=== PATIENT | female | born 1995 | race Caucasian/White ===

== ENCOUNTER 2017-01-06 11:39 | Emergency (ER) | payer MEDICAID, OTHER ==
[~2017-01-06] VITALS: Ht 160 cm; Wt 61.5 kg
[~2017-01-06 11:39] MED LIST: IBUP600 PO; PERI8.6T PO; PREN0.01 PO
[2017-01-06 11:42] VITALS: BP 116/67; PULSE 77; RESP 14; TEMP 98.2; O2SAT 98
--- NOTE | 2017-01-06 11:54 | PD ---
Physical Exam Time Seen by Provider: 11:54 Narrative 21 y/o female who reports that she is 13 weeks presents with vaginal bleeding. Vital signs reviewed. Seen at triage desk. Awaiting bed placement. Data Data Last Documented VS Vital Signs Date Time Temp Pulse Resp B/P Pulse Ox O2 Delivery O2 Flow Rate FiO2 01/06/17 11:42 98.2 77 14 116/67 98 MDM Medical Record Reviewed: Yes Supervised Visit with BARBARA: Gilbert Cantor Jan 06, 2017 11:54
[2017-01-06 12:47] LABS: AUTOMATED NEUTROPHIL # 4.7 TH/MM3 (1.8-7.7); BASOPHIL % 0.2 % (0.0-2.0); EOSINOPHIL # 0.1 TH/MM3 (0-0.4); HEMATOCRIT 40.6 % (35.0-46.0); HEMO FLAGS DIFF FINAL; LYMPH % 31.2 % (9.0-44.0); LYMPHOCYTE # 2.3 TH/MM3 (1.0-4.8); MEAN CELL VOLUME 88.6 FL (80.0-100.0); MEAN CORPUSCULAR HGB CONC 33.9 % (32.0-36.0); NEUT % 62.6 % (16.0-70.0); PLATELET COUNT 243 TH/MM3 (150-450); RED BLOOD COUNT 4.58 MIL/MM3 (4.00-5.30); RED CELL DISTRIBUTION WIDTH 12.9 % (11.6-17.2); WHITE BLOOD COUNT 7.5 TH/MM3 (4.0-11.0)
[2017-01-06 13:07] LABS: ANION GAP 8 MEQ/L (5-15); AST (GOT) 35 U/L (15-37); BLOOD UREA NITROGEN 8 MG/DL (7-18); CHLORIDE 106 MEQ/L (98-107); GLOMERULAR FILTRATION RATE 152 ML/MIN (>89); POTASSIUM 3.5 MEQ/L (3.5-5.1); SODIUM (NA) 139 MEQ/L (136-145)
[2017-01-06 13:48] LABS: ALKALINE PHOSPHATASE 96 U/L (45-117); ALT (GPT) 58 U/L (10-53); TOTAL BILIRUBIN ADULT 0.4 MG/DL (0.2-1.0)
[2017-01-06 14:04] LABS: BETA HCG QUANT 4594 MIU/ML (0-5)
--- NOTE | 2017-01-06 15:00 | PD ---
HPI Chief Complaint: Related Problem Time Seen by Provider: 14:55 Travel History International Travel<30 days: No Contact w/Intl Traveler<30days: No Traveled to known affect area: No History of Present Illness HPI 21-year-old , 13 week by questionable dates female presents to the ED for evaluation of one day history of vaginal bleeding. She states that she went to the bathroom at work today and saw a small amount of blood on the paper and in the bowl. Patient endorses intermittent mild abdominal cramping for weeks which she associates with "the iron in the vitamins." She denies abdominal pain, nausea, vomiting, dysuria, back pain. She denies chronic health problems. States LMP "sometime in September." She has an upcoming appointment for an ultrasound but has not yet established OB care. [facility] Past Medical History Medical History: Denies Significant Hx Diminished Hearing: No Tetanus Vaccination: < 5 Years Influenza Vaccination: No ?: LMP: UNKNOWN : 2 Para: 1 Past Surgical History Surgical History: No Previous Surgery Social History Alcohol Use: No (pt denies ) Tobacco Use: No (pt denies ) Substance Use: No (pt denies ) Allergies-Medications (Allergen,Severity, Reaction): Coded Allergies: No Known Allergies (Verified , 01/06/17) Reported Meds & Prescriptions Reported Meds & Active Scripts Active No Active Prescriptions or Reported Medications Review of Systems Except as stated in HPI: all other systems reviewed are Neg Physical Exam Narrative GENERAL: Well-nourished, well-developed thin white female in no acute distress. SKIN: Focused skin assessment warm/dry. HEAD: Normocephalic. EYES: No scleral icterus. No injection or drainage. NECK: Supple, trachea midline. No JVD or lymphadenopathy. CARDIOVASCULAR: Regular rate and rhythm without murmurs, gallops, or rubs. RESPIRATORY: Breath sounds clear and equal bilaterally. No accessory muscle use. GASTROINTESTINAL: Abdomen soft, non-tender, nondistended. Active bowel sounds. MUSCULOSKELETAL: No cyanosis, or edema. GENITOURINARY: Normal external genitalia without lesions or erythema. Vaginal vault without blood or drainage. Cervical os was closed, thick, firm, small amount of mucoid drainage. No cervical motion tenderness. Uterus nontender and nonenlarged. Bilateral adnexa nontender without masses. BACK: Nontender without obvious deformity. No CVA tenderness. Data Data Last Documented VS Vital Signs Date Time Temp Pulse Resp B/P Pulse Ox O2 Delivery O2 Flow Rate FiO2 01/06/17 14:12 78 16 01/06/17 11:42 98.2 116/67 98 Orders Beta Hcg (Quant/Titer) (01/06/17 11:55) Complete Blood Count With Diff (01/06/17 11:55) Comprehensive Metabolic Panel (01/06/17 11:55) Complete Rh (01/06/17 11:55) Ed Poc Ultrasound (01/06/17 14:30) Urinalysis - C+S If Indicated (01/06/17 14:53) Us Pelvis (Ques Pr/Ect)W Trans (01/06/17 ) Labs Laboratory Tests Test 01/06/17 01/06/17 12:01 15:30 White Blood Count 7.5 TH/MM3 Red Blood Count 4.58 MIL/MM3 Hemoglobin 13.8 GM/DL Hematocrit 40.6 % Mean Corpuscular Volume 88.6 FL Mean Corpuscular Hemoglobin 30.0 PG Mean Corpuscular Hemoglobin 33.9 % Concent Red Cell Distribution Width 12.9 % Platelet Count 243 TH/MM3 Mean Platelet Volume 7.5 FL Neutrophils (%) (Auto) 62.6 % Lymphocytes (%) (Auto) 31.2 % Monocytes (%) (Auto) 5.0 % Eosinophils (%) (Auto) 1.0 % Basophils (%) (Auto) 0.2 % Neutrophils # (Auto) 4.7 TH/MM3 Lymphocytes # (Auto) 2.3 TH/MM3 Monocytes # (Auto) 0.4 TH/MM3 Eosinophils # (Auto) 0.1 TH/MM3 Basophils # (Auto) 0.0 TH/MM3 CBC Comment DIFF FINAL Differential Comment Sodium Level 139 MEQ/L Potassium Level 3.5 MEQ/L Chloride Level 106 MEQ/L Carbon Dioxide Level 25.0 MEQ/L Anion Gap 8 MEQ/L Blood Urea Nitrogen 8 MG/DL Creatinine 0.51 MG/DL Estimat Glomerular Filtration 152 ML/MIN Rate Random Glucose 78 MG/DL Calcium Level 9.6 MG/DL Total Bilirubin 0.4 MG/DL Aspartate Amino Transf 35 U/L (AST/SGOT) Alanine Aminotransferase 58 U/L (ALT/SGPT) Alkaline Phosphatase 96 U/L Total Protein 8.4 GM/DL Albumin 4.5 GM/DL Human Chorionic Gonadotropin, 4594 MIU/ML Quant Blood Type O POSITIVE Rho(D) Type POSITIVE Urine Color LIGHT-YELLOW Urine Turbidity CLEAR Urine pH 7.0 Urine Specific [place] 1.008 Urine Protein NEG mg/dL Urine Glucose (UA) NEG mg/dL Urine Ketones NEG mg/dL Urine Occult Blood NEG Urine Nitrite NEG Urine Bilirubin NEG Urine Urobilinogen LESS THAN 2.0 MG/DL Urine Leukocyte Esterase NEG Urine RBC LESS THAN 1 /hpf Urine WBC 1 /hpf Urine Squamous Epithelial 1 /hpf Cells Microscopic Urinalysis Comment CULT NOT INDICATED MDM Medical Decision Making Medical Screen Exam Complete: Yes Emergency Medical Condition: Yes Differential Diagnosis Ectopic versus intrauterine versus vaginal bleeding in versus threatened versus other Narrative Course 21-year-old 13 week the question while dates female presents to the ED for evaluation of one day history of vaginal bleeding in 3 weeks history of mild abdominal cramping. She associates the cramping with "iron and vitamins." LMP "sometime in September" had an upcoming ultrasound appointment but no OB care. Vitals reviewed. Abdominal exam unremarkable. Pelvic exam with cervical os closed with small amount of mucoid discharge. [id number] ultrasound reveals intrauterine . HCG~4500. Transvaginal ultrasound reveals crown-rump length corresponding with gestational age 8 weeks, 3 days. Gestational sac corresponds with 7 week, 2 day gestational age. No heart motion noted. Consistent with demise. I spoke with the OB hospitalist who recommended outpatient follow-up. I spoke with Dr. Oconnor who agrees to see the patient in the office this week. Discussed the results of the workup with the patient and provided detailed instructions for follow-up. The patient indicated understanding of the instructions and is agreeable to the care plan. She is stable and discharged home. Procedures Procedure Narrative Emergency Department Pelvic ultrasound was performed with patient consent. The curvilinear probe was used in the transverse and sagittal views within the suprapubic region revealing single intrauterine , too small to visualize heart rate. Diagnosis Primary Impression: demise due to miscarriage Referrals: Noemi Oconnor MD Patient Instructions: General Instructions, Intrauterine Demise (ED) Additional Instructions: Rest, hydrate. Call Dr. Coon's office tomorrow morning for an appointment this week. YOU SHOULD FOLLOW-UP THIS WEEK. Return to the ED for any urgent or emergent medical condition. Scripts No Active Prescriptions or Reported Meds Disposition: 01 DISCHARGE HOME Condition: Rosalee Encinas Jan 06, 2017 15:00
--- NOTE | 2017-01-06 15:34 | RADRPT ---
EXAM DATE/TIME: 01/06/2017 15:04 [place] COMPARISON: US PELVIS (QUEST PREG/ECTOPIC) W/TRANSVAG, November 26, 2013, 3:50. INDICATIONS : Bleeding with . LAB(S): Beta-hC MEDICAL HISTORY : . SURGICAL HISTORY : None. ENCOUNTER: Initial ACUITY: 1 day PAIN SCORE: 0/10 LOCATION: Bilateral pelvis MEASUREMENTS: UTERUS: 10.5 x 7.7 x 5.5 cm ENDOMETRIAL STRIPE: >20 mm RIGHT OVARY: not seen LEFT OVARY: 4.1 x 1.8 x 1.8 cm FREE FLUID: Yes CROWN RUMP LENGTH: 1.9 cm = 8 WKS 3 DAYS FHR: 0 BPM FINDINGS: UTERUS: The myometrium has homogeneous echotexture without mass. Gestational sac is identified measuring 2.7 x 2.0 x 2.9 cm corresponding to a gestational age of 7 weeks and 2 days. pole is identified leonor suring 1.93 cm in length corresponding to a gestational age of 8 weeks and 3 days. I do not definitiv diane identify a yolk sac. heart motions are not identified as well. RIGHT OVARY: Right ovary is not visualized. No adnexal mass lesions LEFT OVARY: 9 mm complex cyst identified in the left ovary probably represents the involuting corpus luteum. MISCELLANEOUS: Small amount of free fluid in the cul-de-sac. CONCLUSION: Ultrasound findings characteristic of demise. No heart motion identified. Bala Ballard MD on January 06, 2017 at 15:29 Board Certified Radiologist. This report was verified electronically.
[2017-01-06 15:39] LABS: BLOOD, URINE NEG (NEG); GLUCOSE,URINE NEG (NEG); KETONE, URINE NEG (NEG); NITRITE,URINE NEG (NEG); SQUAMOUS EPITHELIAL CELL URINE 1 /hpf (0-5); URINE COLOR LIGHT-YELLOW (YELLW/STRAW)
[2017-01-06 15:42] LABS: COMMENT (UR) CULT NOT INDICATED; CULTURE IF INDICATED CULT NOT INDICATED
[2017-01-06 16:15] VITALS: BP 120/69; TEMP 97.8
== END 2017-01-06 16:25 | disposition home or self-care (01) ==
LOC: NEPD 11:39
DX: O02.1 Missed abortion (principal); Z3A.13 13 weeks gestation of pregnancy
CPT/HCPCS: 76700; 76817; 80053; 81001; 84702; 85025

== ENCOUNTER 2017-07-24 14:06 | Emergency (ER) | payer MEDICAID ==
[2017-07-24 14:50] VITALS: BP 119/69; PULSE 66
[2017-07-24 15:00] VITALS: RESP 16
[2017-07-24] MEDS ORDERED: LACTATED RINGER'S 1000 ML INJ 1,000 ML IV SCH (15:06)
[2017-07-24] MEDS ORDERED: ONDANSETRON HCL 4 MG/2 ML VIAL IV PUSH ONE (15:15)
--- NOTE | 2017-07-24 15:20 | PD ---
HPI Chief Complaint Nausea with Vomiting Date Seen: Jul 24, 2017 Travel History International Travel<30 Days: No Contact w/Intl Traveler<30Days: No Known Affected Area: No History of Present Illness HPI Ms. Singleton is a 22 y/o presenting at 18/5 weeks gestation with nausea and vomiting. She states that throughout her first trimester she has had nausea with vomiting. She was using marijuana to help her symptoms, but was given Promethazine 25mg Q4H for her symptoms by her OBGYN, Dr. Dominguez, at [facility]. She presents today with 24 hours of nausea and multiple episodes of vomiting. The vomiting has been without blood and mostly liquid as she has been unable to eat since yesterday at 1200. She has mild ABD discomfort due to her vomiting, but denies any contractions. She also denies any vaginal discharge, dysuria, or vaginal bleeding. Otherwise she has no complaints and denies any fevers, chills, SOB, chest pain, or calf tenderness. Weeks Gestation: 18 Para: 1 : 3 History Past Medical History Medical History: Denies Significant Hx Obstetric History Obstetric History -1st : at full term, no complications -2nd : Miscarriage at <20 weeks -This has been uncomplicated thus far. Past Surgical History Surgical History: No Previous Surgery Family History Family History: Negative Social History Narrative Social History No report of alcohol history. Patient has been smoking 2-3 cigarettes per day. Patient has been using marijuana for her nausea daily with last use on 07/23/17. No other history of illicit drugs reported. Allergies-Medications (Allergen,Severity, Reaction): Coded Allergies: No Known Allergies (Verified Allergy, Unknown, 07/24/17) Home Meds Active Scripts Potassium Chloride ER (K-Tab) 10 Meq Tab, 10 MEQ PO DAILY for Electrolyte Replacement, #6 TAB 0 Refills Prov:Dakota Ndiaye MD 07/24/17 Ondansetron Odt (Zofran Odt) 4 Mg Tab, 4 MG SL Q6HR Y for Nausea/Vomiting, #30 TAB 0 Refills Prov:Dakota Ndiaye MD 07/24/17 Review of Systems Except as stated in HPI: all other systems reviewed are Neg (Per HPI) Physical Exam Narrative GENERAL: Well-nourished, well-developed patient. SKIN: Warm and dry. HEAD: Normocephalic and atraumatic. EYES: No scleral icterus. No injection or drainage. ENT: No nasal drainage noted. Mucous membranes pink. Airway patent. NECK: Supple, trachea midline. No JVD. CARDIOVASCULAR: Regular rate and rhythm without murmurs, gallops, or rubs. RESPIRATORY: Breath sounds equal bilaterally. No accessory muscle use. ABDOMEN/GI: Abdomen soft, bowel sounds present, no rebound, no guarding. Mild tenderness to palpation of the upper 2 quadrants. Gravid to 18 weeks size FHT's: 150s EXTREMITIES: No cyanosis or edema. BACK: Nontender without obvious deformity. No CVA tenderness. NEUROLOGICAL: Awake and alert. Motor and sensory grossly within normal limits. Five out of 5 muscle strength in all muscle groups. Normal speech. Data Data Vital Signs Reviewed: Yes [facility] Medical Record Reviewed: Yes Plan Ms. Singleton is a 22 y/o presenting at 18/5 weeks gestation with nausea and vomiting likely related to . 1. IUP at 18 weeks gestation -Continue routine antepartum care -Encourage oral hydration -Encourage PNV -FHT appreciated, 150s 2. Nausea with vomiting -CBC, BMP, and UA ordered -1L LR bolus -Zofran 4mg x1 -Patient to undergo oral challenge for likely discharge with resolution of symptoms Discharge: Patient to be discharged home after passing oral challenge. Patient to follow up closely with OBGYN for further management. SDW: Dr. Ndiaye, Dr. Morales Update: Patient is hypokalemic, Potassium IV ordered. Patient tolerating PO well and feels improved. Patient to be discharged home with SL Zofran to be used as needed. Patient to follow up with OBGYN within 3-5 days. Diagnosis Diagnosis: Primary Impression: 18 weeks gestation of Additional Impression: Nausea and vomiting during prior to 22 weeks gestation Disposition: 01 DISCHARGE HOME Condition: Stable Scripts Potassium Chloride ER (K-Tab) 10 Meq Tab 10 MEQ PO DAILY for Electrolyte Replacement, #6 TAB 0 Refills Prov: Dakota Ndiaye MD 07/24/17 Ondansetron Odt (Zofran Odt) 4 Mg Tab 4 MG SL Q6HR Y for Nausea/Vomiting, #30 TAB 0 Refills Prov: Dakota Ndiaye MD 07/24/17 Patient Instructions: General Instructions, Abdominal Pain in (ED), Nausea and Vomiting in (ED), Diet (GEN) Tramaine Mirza MD R2 Jul 24, 2017 15:20
[2017-07-24 15:55] LABS: HEMATOCRIT 40.2 % (35.0-46.0); HEMOGLOBIN 14.3 GM/DL (11.6-15.3); MEAN CELL VOLUME 86.7 FL (80.0-100.0); MEAN CORPUSCULAR HEMOGLOBIN 30.8 PG (27.0-34.0); MEAN CORPUSCULAR HGB CONC 35.5 % (32.0-36.0); MEAN PLATELET VOLUME 8.2 FL (7.0-11.0); PLATELET COUNT 323 TH/MM3 (150-450); RED BLOOD COUNT 4.63 MIL/MM3 (4.00-5.30); WHITE BLOOD COUNT 17.8 TH/MM3 (4.0-11.0)
[2017-07-24 16:14] LABS: BICARBONATE 22.7 MEQ/L (21.0-32.0); CALCIUM 9.9 MG/DL (8.5-10.1); CREATININE 0.77 MG/DL (0.50-1.00)
[2017-07-24] MEDS ORDERED: POTASSIUM CHLORIDE 25 MEQ EFFERVESCENT TAB PO ONE (16:45)
[2017-07-24] MEDS ORDERED: POTASSIUM CHLOR 10 MEQ PREMIX 100 ML IV ONE (17:00)
[2017-07-24 18:09] LABS: BILIRUBIN, URINE NEG (NEG); BLOOD, URINE SMALL (NEG); GLUCOSE,URINE TRACE mg/dL (NEG); KETONE, URINE 150 mg/dL (NEG); MUCUS URINE FEW /lpf (OCC); NITRITE,URINE NEG (NEG); SQUAMOUS EPITHELIAL CELL URINE 7 /hpf (0-5); URINE COLOR YELLOW (YELLW/STRAW); URINE LEUKOCYTE ESTERASE NEG (NEG)
[2017-07-24] MEDS ORDERED: ZOFR4TAB3 SL (18:44)
[2017-07-24] MEDS ORDERED: K-TA10TA PO (18:46)
--- NOTE | 2017-07-24 18:48 | HHI.DCPOC ---
Discharge Care Plan Diagnosis: (1) Hypokalemia due to loss of potassium (2) 18 weeks gestation of (3) Nausea and vomiting during prior to 22 weeks gestation Report Symptoms to Your Doctor -Temperature above 100.5 degrees -Redness, of incision or excessive or foul smelling drainage -Unusual pain or calf pain -Increased vaginal bleeding -Painful or difficulty urinating -Feelings of extreme sadness or anxiety after 2 weeks Goals to Promote Your Health * To prevent worsening of your condition and complications * To maintain your health at the optimal level Directions to Meet Your Goals Take your medications as prescribed Follow your dietary instruction Follow activity as directed Ensure plenty of rest for recovery Drink fluids for hydration Keep your appointments as scheduled Take your immunizations and boosters as scheduled If your symptoms worsen call your PCP, if no PCP go to Urgent Care Center or Emergency Room Smoking is Dangerous to Your Health. Avoid second hand smoke Call the 24-hour crisis hotline for domestic abuse at Dakota Ndiaye MD Jul 24, 2017 18:48
== END 2017-07-24 19:21 | disposition home or self-care (01) ==
LOC: HOBED 14:06
DX: O21.9 Vomiting of pregnancy, unspecified (principal); E87.6 Hypokalemia; O99.332 Smoking (tobacco) complicating pregnancy, second trimester; F17.210 Nicotine dependence, cigarettes, uncomplicated; Z3A.18 18 weeks gestation of pregnancy
CPT/HCPCS: 80048; 81001; 84112; 85027; 96374; 96375; 99284; J2405; J3480; J7120

== ENCOUNTER 2017-12-27 18:02 | Inpatient (IN) ==
[2017-12-27] MEDS ORDERED: Oxytocin 30 Units/500ml Premix 30 UNITS/500 ML BAG IV.SIG ONE (18:35)
[2017-12-27] MEDS ORDERED: Sod Chloride 0.9% Inj 1,000 ML IV.CONT PRN (18:35)
[2017-12-27] MEDS ORDERED: Naloxone Inj 0.4 MG/ML Vial IV.PUSH PRN (18:35)
[2017-12-27] MEDS ORDERED: Sodium Chlor 0.9% Inj 500 ML IV.SIG PRN (18:35)
[2017-12-27] MEDS ORDERED: fentaNYL Citrate Inj 100 MCG/2 ML Ampul IV.PUSH PRN (18:35)
--- NOTE | 2017-12-27 18:40 | P.HPOB ---
History of Present Illness Primary Care Physician: NOT REQUIRED History of Present Illness: 22-year-old 3 para 1 AB 1 at 41 weeks gestation who comes tonight for induction of labor due to postdates . We reviewed the risks benefits and alternatives and she consents to cervical ripening with Cervidil followed by induction of labor with Pitocin. - Inpatient Certification I certify that the inpatient services were ordered in accordance with Medicare regulations governing the order. This includes certification that hospital inpatient services are reasonable and necessary and in the case of services not specified as inpatient-only under 42 CFR 419.22(n), that they are appropriately provided as inpatient services in accordance to with the 2-midnight benchmark under 43 CFR 412.3(e) Estimated Total Length of Stay (Days): 3 Plans for Post Hospital Care: Home Review of Systems All other systems reviewed negative except as stated in HPI PMFSH - Medical / Surgical Hx Neg / Unobtainable Medical Problems Denied: Yes Surgical History: No Previous Surgery - Tobacco History Smoking Status: Former smoker - Travel History Recent Travel in the [place] Within the Last 8 Weeks: No Recent Travel Out of the Country Within the Last 8 Weeks: No Medications and Allergies Allergies Allergy/AdvReac Type Severity Reaction Status Date / Time No Known Allergies Allergy Unknown Uncoded 07/24/17 15:11 Exam Vital signs: Intake & Output 12/26/17 12/27/17 12/27/17 18:59 06:59 18:59 Weight 64.864 kg Narrative: GENERAL: Well-nourished, well-developed patient. SKIN: Warm and dry. HEAD: Normocephalic and atraumatic. EYES: No scleral icterus. No injection or drainage. ENT: No nasal drainage noted. Mucous membranes pink. Airway patent. NECK: Supple, trachea midline. No JVD. CARDIOVASCULAR: Regular rate and rhythm without murmurs, gallops, or rubs. RESPIRATORY: Breath sounds equal bilaterally. No accessory muscle use. ABDOMEN/GI: Abdomen soft, non-tender, bowel sounds present, no rebound, no guarding Gravid to [-] weeks size Fundal Height: [-] GENITOURINARY: External Genitalia: intact and normal in appearance BUS glands: [-] Cervix: [-] Dilatation: [-2] Effacement: [50-] Station: [--2] Presentation: [-vtx] Membranes: [intact ] Uterine Contractions: [-no] FHT's: Category: [-1] Baseline: [-] Reactive: [-yes] Variability: [-] Decels: [-] EXTREMITIES: No cyanosis or edema. BACK: Nontender without obvious deformity. No CVA tenderness. NEUROLOGICAL: Awake and alert. Motor and sensory grossly within normal limits. Five out of 5 muscle strength in all muscle groups. Normal speech. Caprini VTE Risk Assessment Caprini VTE Risk Assessment: No/Low Risk (score <= 1) Caprini Risk Assessment Model: Point Value = 1 Point Value = 2 Point Value = 3 Point Value = 5 Age 41-60 Minor surgery BMI > 25 kg/m2 Swollen legs Varicose veins or History of unexplained or recurrent spontaneous Oral contraceptives or hormone replacement Sepsis (< 1 month) Serious lung disease, including pneumonia (< 1 month) Abnormal pulmonary function Acute myocardial infarction Congestive heart failure (< 1 month) History of inflammatory bowel disease Medical patient at bed rest Age 61-74 Arthroscopic surgery Major open surgery (> 45 min) Laparoscopic surgery (> 45 min) Malignancy Confined to bed (> 72 hours) Immobilizing plaster cast Central venous access Age >= 75 History of VTE Family history of VTE Factor V Leiden Prothrombin [id number] Lupus anticoagulant Anticardiolipin antibodies Elevated serum homocysteine Heparin-induced thrombocytopenia Other congenital or acquired thrombophilia Stroke (< 1 month) Elective arthroplasty Hip, pelvis, or leg fracture Acute spinal cord injury (< 1 month) Prophylaxis Regimen: Total Risk Factor Score Risk Level Prophylaxis Regimen 0-1 Low Early ambulation 2 Moderate Order ONE of the following: *Sequential Compression Device (SCD) *Heparin 5000 units SQ BID 3-4 Higher Order ONE of the following medications: *Heparin 5000 units SQ TID *Enoxaparin/Lovenox 40 mg SQ daily (WT < 150 kg, CrCl > 30 mL/min) *Enoxaparin/Lovenox 30 mg SQ daily (WT < 150 kg, CrCl > 10-29 mL/min) *Enoxaparin/Lovenox 30 mg SQ BID (WT < 150 kg, CrCl > 30 mL/min) AND/OR *Sequential Compression Device (SCD) 5 or more Highest Order ONE of the following medications: *Heparin 5000 units SQ TID (Preferred with Epidurals) *Enoxaparin/Lovenox 40 mg SQ daily (WT < 150 kg, CrCl > 30 mL/min) *Enoxaparin/Lovenox 30 mg SQ daily (WT < 150 kg, CrCl > 10-29 mL/min) *Enoxaparin/Lovenox 30 mg SQ BID (WT < 150 kg, CrCl > 30 mL/min) AND *Sequential Compression Device (SCD) Assessment and Plan - Plan Assessment: 41 week intrauterine admitted for cervical ripening and induction of labor Plan: Cervidil followed by Pitocin. She is GBS negative.
[2017-12-27] MEDS ORDERED: Citric Acid/Sodium Citrate Liq 30 ML UDC PO SCH (18:45)
[2017-12-27 18:55] LABS: Baso % (Auto) 0.2 % (0.0-2.0); Eos % (Auto) 0.3 % (0.0-4.0); Hematocrit 38.1 % (35.0-46.0); Hemoglobin 13.4 gm/dL (11.6-15.3); Lymph # (Auto) 1.5 th/mm3 (1.0-4.8); Lymph % (Auto) 17.9 % (9.0-44.0); Mean Corpuscular HGB Conc 35.1 % (32.0-36.0); Mean Corpuscular Hemoglobin 30.9 pg (27.0-34.0); Mono # (Auto) 0.5 th/mm3 (0.0-0.9); Mono % (Auto) 5.8 % (0.0-8.0); Neut # (Auto) 6.5 th/mm3 (1.8-7.7); Neut % (Auto) 75.8 % (16.0-70.0); Platelet Count 214 th/mm3 (150-450); Red Blood Count 4.33 mil/mm3 (4.00-5.30); Red Cell Distribution Width 12.5 % (11.6-17.2); White Blood Count 8.5 th/mm3 (4.0-11.0)
[2017-12-27 19:04] LABS: Amphetamine Urine With Conf Neg (Neg); Benzodiazepine Urine With Conf Neg (Neg)
[2017-12-27 19:19] LABS: Bacteria,Urine Few /hpf; Bilirubin,Urine Negative (Negative); Clarity,Urine Cloudy (Clear); Color,Urine Amber (Yellw/Straw); Glucose,Urine (UA) 50 mg/dL (Negative); Leukocyte Esterase,Urine Moderate (Negative); Mucus,Urine Few /lpf (Occasional); Nitrite,Urine Negative (Negative); Specific Gravity,Urine 1.033 (1.002-1.035); Squamous Epithelial Cell,Urine 42 /hpf (0-5)
[2017-12-28] MEDS ORDERED: Zolpidem Tartrate 5 MG Tablet PO PRN ×2 (00:01→12:02)
[2017-12-28] MEDS: fentaNYL Citrate Inj 100 MCG/2 ML Ampul IV.PUSH PRN ×2 (05:44→07:22)
[2017-12-28] MEDS ORDERED: fentaNYL 2MCG-Bupiv 0.125% Epi 150 ML EPIDURAL ONE (08:26)
[2017-12-28] MEDS ORDERED: Lidocaine PF 1% Inj 30 ML Vial ONE (09:16)
[2017-12-28] MEDS ORDERED: Oxytocin 30 Units/500ml Premix 30 UNITS/500 ML BAG ONE (09:18)
[2017-12-28] MEDS ORDERED: fentaNYL 2MCG-Bupiv 0.125% Epi 150 ML EPIDURAL PRN (10:14)
[2017-12-28] MEDS ORDERED: fentaNYL Citrate Inj 100 MCG/2 ML Ampul EPIDURAL ONE (10:14)
[2017-12-28] MEDS ORDERED: Benzocaine 20% Top Spray 60 ML Can TOPICAL PRN (12:02)
[2017-12-28] MEDS ORDERED: Naloxone Inj 0.4 MG/ML Vial IV.PUSH PRN (12:02)
[2017-12-28] MEDS ORDERED: Witch Hazel 50%/Glyderin 12.5% 40 Pad Jar RECTAL PRN (12:02)
[2017-12-28] MEDS ORDERED: Bisacodyl 10 MG Supp RECTAL PRN (12:02)
--- NOTE | 2017-12-28 12:10 | P.OBDELI ---
Weeks Gestation: 41 Medical Induction of Labor: Yes Artificial Rupture of Membrane: Yes Anesthesia: Epidural Episiotomy: midline Vaginal Delivery: Normal Presentation: Occiput anterior Nuchal Cord: None Delayed Cord Clamping (45 sec): Yes Placenta: Spontaneous delivery Laceration: 2 deg Repair: Chromic running Estimated blood loss (mL): 200 : Male Male A Weight: 3355 kg score (1 min): 9 score (5 min): 9 Additional Information: Head delivered by maternal effort. Episiotomy done midline. Head delivered by maternal effort. Nuchal cord not around neck. Anterior shoulder delivered without complication. Placenta delivered without complication. 2 degree perineal laceration repaired with chromic running.
[2017-12-28] MEDS ORDERED: Oxytocin 30 Units/500ml Premix 30 UNITS/500 ML BAG IV.CONT SCH (12:15)
[2017-12-28] MEDS: Acetaminophen 325 MG Tablet PO PRN ×2 (15:52→20:47)
[2017-12-28] MEDS: Ibuprofen 400 MG Tablet PO PRN (15:52)
[2017-12-28] MEDS ORDERED: Measles/Mumps/Rubella Vaccine Inj 0.5 ML Vial SQ ONE (16:00)
[2017-12-28] MEDS ORDERED: Diphtheria/Tetanus/Pertussis Vaccine Inj 0.5 ML Syringe IM ONE (16:00)
[2017-12-28] MEDS: Senna/Docusate Sodium 8.6/50 MG Tablet PO SCH (20:35)
[2017-12-29] MEDS: Acetaminophen 325 MG Tablet PO PRN ×5 (03:57→23:38)
--- NOTE | 2017-12-29 07:22 | P.PNOB ---
Subjective Post day: 1 Interval history: Patient is a 22-year-old delivered at 41 weeks and 1 days. Patient is day 1 after . Patient's pain is well-controlled. She has some upper left quadrant pain that started with her and was hoping would have resolved with the delivery. Non radiating sharp intermittent. Patient reports eating and drinking without any nausea or vomiting. Patient reports minimal bleeding. Patient has passed gas but no bowel movements. Patient is walking without lower extremity pain or shortness of breath. Patient reports desire for implant contraception and formula. Objective Vital Signs/I&O: Vital Signs 12/28/17 08:22 12/28/17 08:23 12/28/17 08:45 Temperature Pulse Rate 74 103 H Respiratory Rate 18 Blood Pressure 129/82 127/71 12/28/17 08:46 12/28/17 08:50 12/28/17 08:55 Temperature Pulse Rate 102 H 94 H Respiratory Rate 18 Blood Pressure 126/67 128/80 12/28/17 09:00 12/28/17 09:08 12/28/17 09:30 Temperature 97.7 F Pulse Rate 82 94 H 78 Respiratory Rate 16 Blood Pressure 116/66 118/70 12/28/17 09:46 12/28/17 09:47 12/28/17 09:48 Temperature Pulse Rate 92 H 100 H Respiratory Rate 16 Blood Pressure 100/53 L 92/57 L 12/28/17 10:00 12/28/17 10:04 12/28/17 10:15 Temperature Pulse Rate 91 H 94 H Respiratory Rate 16 Blood Pressure 91/50 L 87/50 L 12/28/17 10:18 12/28/17 10:20 12/28/17 10:30 Temperature Pulse Rate 79 75 Respiratory Rate 16 Blood Pressure 107/56 L 106/66 12/28/17 10:36 12/28/17 10:45 12/28/17 11:01 Temperature Pulse Rate 80 80 Respiratory Rate 16 16 Blood Pressure 103/68 99/62 L 12/28/17 11:06 12/28/17 11:15 12/28/17 11:35 Temperature 98.4 F Pulse Rate 104 H 133 H Respiratory Rate Blood Pressure 115/75 121/77 12/28/17 11:45 12/28/17 11:46 12/28/17 11:53 Temperature Pulse Rate 110 H Respiratory Rate 16 16 Blood Pressure 104/54 L 12/28/17 12:00 12/28/17 12:14 12/28/17 12:27 Temperature 97.8 F Pulse Rate 108 H 99 H Respiratory Rate 16 16 Blood Pressure 118/53 L 97/62 L 12/28/17 12:30 12/28/17 12:45 12/28/17 12:46 Temperature Pulse Rate 95 H 110 H Respiratory Rate 16 Blood Pressure 105/66 107/69 12/28/17 13:00 12/28/17 13:34 12/28/17 14:58 Temperature 98.2 F Pulse Rate 116 H 104 H 99 H Respiratory Rate 16 16 Blood Pressure 112/73 104/61 109/66 12/28/17 20:00 Temperature 98.1 F Pulse Rate 67 Respiratory Rate 18 Blood Pressure 107/63 Result Diagrams: 12/27/17 18:30 Objective Remarks: GENERAL: Well-nourished, well-developed patient. CARDIOVASCULAR: Regular rate and rhythm without murmurs, gallops, or rubs. RESPIRATORY: Breath sounds equal bilaterally. No accessory muscle use. ABDOMEN/GI: Abdomen soft, non-tender. Fundus: Firm, non-tender at umbilicus. GENITOURINARY: Light to moderate bleeding. EXTREMITIES: No cyanosis or edema, non-tender, without signs of DVT. Medications and IVs: Active Medications Acetaminophen (Tylenol) 650 mg PO Q4H PRN PRN Reason: PAIN SCALE 1 TO 2 Last Admin: 12/29/17 03:57 Dose: 650 mg Al Hydroxide/Mg Hydroxide (Milk Of Magnesia Liq) 30 ml PO Q12H PRN PRN Reason: Mild Constipation Benzocaine (Americaine 20% Top [place]) 1 spray TOPICAL Q4H PRN PRN Reason: For Perineum Discomfort Last Admin: 12/28/17 19:28 Dose: 1 spray Bisacodyl (Dulcolax Supp) 10 mg RECTAL DAILY PRN PRN Reason: SEVERE CONSITIPATION Ephedrine Sulfate (Ephedrine/Ns Syringe) 10 mg IV.PUSH UNSCH PRN PRN Reason: SEE LABEL COMMENTS Stop: 12/29/17 10:14 Fentanyl/Bupivacaine/Sodium Chlor (Fentanyl 2 Mcg-Bupiv 0.125% Epi) 150 mls @ 10 mls/hr EPIDURAL PRN PRN PRN Reason: for Labor Pain Ibuprofen (Motrin) 800 mg PO Q8H PRN PRN Reason: For cramping Last Admin: 12/29/17 00:00 Dose: 800 mg Lactulose (Lactulose Liq) 30 ml PO DAILY PRN PRN Reason: SEVERE CONSITIPATION Miscellaneous Information (Misc Information) 1 each OTHER UNSCH PRN PRN Reason: SEE LABEL COMMENTS Stop: 12/29/17 10:14 Miscellaneous Information (Misc Information) 1 each OTHER UNSCH PRN PRN Reason: SEE LABEL COMMENTS Stop: 12/29/17 10:14 Naloxone HCl (Narcan Inj) 0.1 mg IV.PUSH Q2M PRN PRN Reason: for opiate reversal Ondansetron HCl (Zofran Odt) 4 mg PO Q6H PRN PRN Reason: NAUSEA OR VOMITING Senna/Docusate Sodium (Anne-Marie-Colace) 1 tab PO BID [facility] Last Admin: 12/28/17 20:35 Dose: 1 tab Sennosides (Senokot) 17.2 mg PO Q12H PRN PRN Reason: Moderate Constipation Sodium Chloride (Ns Flush) 2 ml IV.FLUSH BID [facility] Last Admin: 12/28/17 22:15 Dose: 2 ml Sodium Chloride (Ns Flush) 2 ml IV.FLUSH PRN PRN PRN Reason: FLUSH AFTER USING IV ACCESS Sodium Chloride (Ns Flush) 2 ml IV.FLUSH BID [facility] Last Admin: 12/29/17 02:26 Dose: Not Given Sodium Chloride (Ns Flush) 2 ml IV.FLUSH PRN PRN PRN Reason: FLUSH AFTER USING IV ACCESS Witch Charlette/Glycerin (Tucks Pads) 1 applicatio RECTAL QID PRN PRN Reason: HEMORRHOIDS Last Admin: 12/28/17 19:27 Dose: 1 applicatio Zolpidem Tartrate (Ambien) 5 mg PO HS PRN PRN Reason: SLEEP Last Admin: 12/28/17 00:18 Dose: 5 mg Zolpidem Tartrate (Ambien) 5 mg PO HS PRN PRN Reason: SLEEP Assessment and Plan - Diagnosis (1) Vaginal delivery Code(s): O80 - Encounter for full-term uncomplicated delivery Status: Acute Plan: Patient is a []-year-old delivered at 41 weeks and 1 days. Patient is day 1 after . Patient was counseled to do 6 weeks of pelvic rest. Patient was counseled to follow up in 6 weeks. --AF VSS --Continue routine care --Motrin and Tylenol when necessary for pain --Encourage OOB --Pelvic rest for 6 weeks will need follow-up appointment at that time. --Contraception: implant --Anticipate discharge tomorrow
[2017-12-29] MEDS: Senna/Docusate Sodium 8.6/50 MG Tablet PO SCH ×2 (08:27→21:08)
[2017-12-29] MEDS: Ibuprofen 400 MG Tablet PO PRN ×3 (08:27→18:04)
[2017-12-29] MEDS ORDERED: Diphtheria/Tetanus/Pertussis Vaccine Inj 0.5 ML Syringe IM ONE (15:00)
[2017-12-30] MEDS: Ibuprofen 400 MG Tablet PO PRN ×2 (03:31→14:26)
[2017-12-30] MEDS: Acetaminophen 325 MG Tablet PO PRN ×3 (03:32→14:24)
--- NOTE | 2017-12-30 07:25 | P.PNOB ---
Subjective Post day: 2 Interval history: Patient is a 22-year-old delivered at 41 weeks and 1 days. Patient is day 2 after . Patient's pain is well-controlled. She states the LUQ pain has mostly resolved. Patient reports eating and drinking without any nausea or vomiting. Patient reports minimal bleeding. Patient has passed gas and bowel movement. Patient is walking without lower extremity pain or shortness of breath. Patient reports desire for implant contraception and formula. Objective Vital Signs/I&O: Vital Signs 12/29/17 07:56 12/29/17 20:00 Temperature 97.9 F 98.4 F Pulse Rate 83 62 Respiratory Rate 18 18 Blood Pressure 109/74 110/68 Result Diagrams: 12/27/17 18:30 Objective Remarks: GENERAL: Well-nourished, well-developed patient. CARDIOVASCULAR: Regular rate and rhythm without murmurs, gallops, or rubs. RESPIRATORY: Breath sounds equal bilaterally. No accessory muscle use. ABDOMEN/GI: Abdomen soft, non-tender. Fundus: Firm, non-tender at umbilicus. GENITOURINARY: Light to moderate bleeding. EXTREMITIES: No cyanosis or edema, non-tender, without signs of DVT. Medications and IVs: Active Medications Acetaminophen (Tylenol) 650 mg PO Q4H PRN PRN Reason: PAIN SCALE 1 TO 2 Last Admin: 12/30/17 03:32 Dose: 650 mg Al Hydroxide/Mg Hydroxide (Milk Of Magnesia Liq) 30 ml PO Q12H PRN PRN Reason: Mild Constipation Benzocaine (Americaine 20% Top [place]) 1 spray TOPICAL Q4H PRN PRN Reason: For Perineum Discomfort Last Admin: 12/28/17 19:28 Dose: 1 spray Bisacodyl (Dulcolax Supp) 10 mg RECTAL DAILY PRN PRN Reason: SEVERE CONSITIPATION Fentanyl/Bupivacaine/Sodium Chlor (Fentanyl 2 Mcg-Bupiv 0.125% Epi) 150 mls @ 10 mls/hr EPIDURAL PRN PRN PRN Reason: for Labor Pain Ibuprofen (Motrin) 800 mg PO Q8H PRN PRN Reason: For cramping Last Admin: 12/30/17 03:31 Dose: 800 mg Lactulose (Lactulose Liq) 30 ml PO DAILY PRN PRN Reason: SEVERE CONSITIPATION Naloxone HCl (Narcan Inj) 0.1 mg IV.PUSH Q2M PRN PRN Reason: for opiate reversal Ondansetron HCl (Zofran Odt) 4 mg PO Q6H PRN PRN Reason: NAUSEA OR VOMITING Senna/Docusate Sodium (Anne-Marie-Colace) 1 tab PO BID [facility] Last Admin: 12/29/17 21:08 Dose: 1 tab Sennosides (Senokot) 17.2 mg PO Q12H PRN PRN Reason: Moderate Constipation Sodium Chloride (Ns Flush) 2 ml IV.FLUSH BID [facility] Last Admin: 12/30/17 06:30 Dose: Not Given Sodium Chloride (Ns Flush) 2 ml IV.FLUSH PRN PRN PRN Reason: FLUSH AFTER USING IV ACCESS Sodium Chloride (Ns Flush) 2 ml IV.FLUSH BID [facility] Last Admin: 12/30/17 06:32 Dose: Not Given Sodium Chloride (Ns Flush) 2 ml IV.FLUSH PRN PRN PRN Reason: FLUSH AFTER USING IV ACCESS Witch Charlette/Glycerin (Tucks Pads) 1 applicatio RECTAL QID PRN PRN Reason: HEMORRHOIDS Last Admin: 12/28/17 19:27 Dose: 1 applicatio Zolpidem Tartrate (Ambien) 5 mg PO HS PRN PRN Reason: SLEEP Last Admin: 12/28/17 00:18 Dose: 5 mg Zolpidem Tartrate (Ambien) 5 mg PO HS PRN PRN Reason: SLEEP Assessment and Plan - Diagnosis (1) Vaginal delivery Code(s): O80 - Encounter for full-term uncomplicated delivery Status: Acute Plan: Patient is a []-year-old delivered at 41 weeks and 1 days. Patient is day 2 after . Patient was counseled to do 6 weeks of pelvic rest. Patient was counseled to follow up in 6 weeks. --AF VSS --Continue routine care --Motrin and Tylenol when necessary for pain --Encourage OOB --Pelvic rest for 6 weeks will need follow-up appointment at that time. --Contraception: implant --Anticipate discharge today
[2017-12-30 09:23] VITALS: PULSE 83; TEMP 98.2; O2SAT 97
[2017-12-30 09:26] VITALS: BP 104/63; RESP 16
[2017-12-30] MEDS: Senna/Docusate Sodium 8.6/50 MG Tablet PO SCH (09:46)
== END 2017-12-30 15:52 | disposition home or self-care (01) ==
LOC: H2E 18:02 → H1EA 12-28 14:44
PROVIDERS: ADMIT Obstetrics & Gynecology; ATTEND Obstetrics & Gynecology
DX: O48.0 Post-term pregnancy; Z37.0 Single live birth; Z3A.41 41 weeks gestation of pregnancy; Z87.891 Personal history of nicotine dependence; O70.1 Second degree perineal laceration during delivery